=== PATIENT | female | born 1950 | race Two or more races ===

== ENCOUNTER 2017-01-27 17:12 | Inpatient (IN) | payer BC, MEDICAID ==
[~2017-01-27] VITALS: Ht 157.5 cm; Wt 61.7 kg
[~2017-01-27 17:12] MED LIST: AMLO1CAP6 PO; ASPI-1159 PO; AZAT50TA24 PO; CHOL20004 PO; DIATR MEGLU/DIATRIZOATE SOLN 30ML ONE; DOCU-138 PO; FAMO20TA8 PO; FOLI-43 PO; LOPERAMIDE PO; PRED5TAB48 PO; Q-PAP PO; URSODIOL PO
[2017-01-27] MEDS ORDERED: FAMOTIDINE 20MG/2ML VIAL IV STA (19:16)
[2017-01-27] MEDS ORDERED: ONDANSETRON HCL 4MG/2ML VIAL IV STA (19:16)
[2017-01-27 19:41] LABS: BASOPHILS % 0.7 % (0.0-2.0); EOSINOPHILS % 0.6 % (0.0-5.0); HEMOGLOBIN. 13.7 g/dL (12.0-16.0); LYMPHOCYTES % 21.3 % (20.0-50.0); MEAN CORPUSCULAR HEMOGLOBIN 27.9 pg (28.0-32.0); MEAN CORPUSCULAR VOLUME 85.8 fL (81.0-99.0); MEAN PLATELET VOLUME 8.7 fl (7.4-10.4); MONOCYTES % 8.1 % (2.0-8.0); NEUTROPHILS % 69.3 % (40.0-76.0); PLATELET 137 x1000/uL (130-400); RED CELL DISTRIBUTION WIDTH 14.6 % (11.6-14.6)
[2017-01-27 19:43] LABS: CHLORIDE 108 mEq/L (98-107)
[2017-01-27 19:44] LABS: PROTHROMBIN TIME 10.4 sec (9.4-11.6)
[2017-01-27 19:51] LABS: CARBON DIOXIDE 26 mEq/L (21-32)
[2017-01-27 20:01] LABS: GLUCOSE URINE NEGATIVE (NEGATIVE); KETONES URINE TRACE (NEGATIVE); LEUKOCYTE ESTERASE URINE NEGATIVE (NEGATIVE); NITRITE URINE NEGATIVE (NEGATIVE); OCCULT BLOOD URINE NEGATIVE (NEGATIVE); PH URINE 6.5 (4.5-8.0); PROTEIN URINE NEGATIVE (NEGATIVE); SPECIFIC GRAVITY URINE 1.014 (1.005-1.030)
[2017-01-27 20:15] LABS: CLARITY URINE CLEAR (CLEAR); COLOR URINE YELLOW (YELLOW)
[2017-01-28 10:45] VITALS: BP 121/66
[2017-01-28] MEDS ORDERED: IPRATROPIUM/ALBUTEROL 0.5-3(2.5)MG/3ML NEB INH PRN (10:45)
[2017-01-28] MEDS ORDERED: CLONIDINE 0.1MG TABLET PO PRN (10:45)
[2017-01-28] MEDS ORDERED: ACETAMINOPHEN 325MG TABLET PO PRN (10:45)
[2017-01-28] MEDS ORDERED: MAGNESIUM/ALUMINUM HYDROXIDE/SIMETHICONE 30ML UDC PO PRN (10:45)
[2017-01-28] MEDS ORDERED: ONDANSETRON HCL 4MG/2ML VIAL IV PRN (10:45)
[2017-01-28 10:48] VITALS: BP 121/66
[2017-01-28] MEDS: ASPIRIN 81MG EC TABLET PO SCH (11:15)
[2017-01-28] MEDS: ENOXAPARIN 40MG/0.4ML SYR SUBCUT SCH (11:20)
[2017-01-28] MEDS ORDERED: METO5AMP3 PO (11:21)
[2017-01-28] MEDS ORDERED: URSO300C4 PO (11:21)
[2017-01-28] MEDS ORDERED: PRED10TA23 PO (11:21)
[2017-01-28] MEDS ORDERED: LOPE2TAB26 PO (11:21)
[2017-01-28] MEDS ORDERED: CHOL500010 PO (11:21)
[2017-01-28] MEDS ORDERED: ALEN70TA46 PO (11:21)
[2017-01-28] MEDS ORDERED: LOPHC2 PO (11:22)
[2017-01-28] MEDS ORDERED: METO25TA6 PO (11:22)
[2017-01-28] MEDS: SODIUM CHLORIDE 0.9% 1,000 ML IV SCH (12:29)
[2017-01-28 16:00] VITALS: BP 141/78
[2017-01-28 16:38] LABS: CARBON DIOXIDE 27 mEq/L (21-32); CHLORIDE 106 mEq/L (98-107); CREATINE KINASE 80 IU/L (26-192); CREATINE KINASE MB FRACTION 3.1 ng/mL (0.5-3.6); TROPONIN I 0.05 ng/mL (0.00-0.04)
[2017-01-28 20:00] VITALS: BP 126/87
[2017-01-29] VITALS: BP 122/62
[2017-01-29] MEDS: SODIUM CHLORIDE 0.9% 1,000 ML IV SCH (05:17)
[2017-01-29 07:34] LABS: BASOPHILS % 0.6 % (0.0-2.0); EOSINOPHILS % 1.4 % (0.0-5.0); HEMATOCRIT. 41.6 % (36.0-48.0); HEMOGLOBIN. 13.6 g/dL (12.0-16.0); LYMPHOCYTES % 23.2 % (20.0-50.0); MEAN CORPUSCULAR HEMOGLOBIN 27.8 pg (28.0-32.0); MEAN CORPUSCULAR VOLUME 85.2 fL (81.0-99.0); MEAN PLATELET VOLUME 8.8 fl (7.4-10.4); MONOCYTES % 8.8 % (2.0-8.0); PLATELET 126 x1000/uL (130-400); RED BLOOD CELL COUNT 4.88 mill/uL (4.2-5.4); RED CELL DISTRIBUTION WIDTH 14.3 % (11.6-14.6)
[2017-01-29 08:00] VITALS: BP 116/64
[2017-01-29] MEDS: ASPIRIN 81MG EC TABLET PO SCH (08:20)
[2017-01-29 08:30] LABS: AMYLASE 49 IU/L (25-115)
[2017-01-29] MEDS: ENOXAPARIN 40MG/0.4ML SYR SUBCUT SCH (11:13)
[2017-01-29 12:00] VITALS: BP 143/71
[2017-01-29 16:00] VITALS: BP 122/65
[2017-01-29 19:55] VITALS: BP 114/73
[2017-01-30] VITALS: BP 138/60
[2017-01-30] MEDS: SODIUM CHLORIDE 0.9% 1,000 ML IV SCH (03:01)
[2017-01-30 04:00] VITALS: BP 118/71
[2017-01-30 06:35] LABS: BASOPHILS % 0.6 % (0.0-2.0); EOSINOPHILS % 2.2 % (0.0-5.0); HEMATOCRIT. 40.8 % (36.0-48.0); HEMOGLOBIN. 13.4 g/dL (12.0-16.0); LYMPHOCYTES % 25.4 % (20.0-50.0); MEAN CORPUSCULAR HEMOGLOBIN 28.2 pg (28.0-32.0); MEAN CORPUSCULAR VOLUME 85.6 fL (81.0-99.0); MEAN PLATELET VOLUME 8.8 fl (7.4-10.4); MONOCYTES % 9.5 % (2.0-8.0); NEUTROPHILS % 62.3 % (40.0-76.0); PLATELET 111 x1000/uL (130-400); RED BLOOD CELL COUNT 4.76 mill/uL (4.2-5.4); RED CELL DISTRIBUTION WIDTH 14.2 % (11.6-14.6)
[2017-01-30 07:39] LABS: CHLORIDE 109 mEq/L (98-107)
[2017-01-30 07:52] LABS: AMYLASE 45 IU/L (25-115); CARBON DIOXIDE 25 mEq/L (21-32); CREATINE KINASE 78 IU/L (26-192); CREATINE KINASE MB FRACTION 2.3 ng/mL (0.5-3.6); TROPONIN I 0.06 ng/mL (0.00-0.04)
[2017-01-30 08:00] VITALS: BP 120/71
[2017-01-30] MEDS: ASPIRIN 81MG EC TABLET PO SCH (08:47)
[2017-01-30] MEDS: ENOXAPARIN 40MG/0.4ML SYR SUBCUT SCH (10:12)
[2017-01-30 12:00] VITALS: BP 138/60
[2017-01-30] MEDS ORDERED: CARVEDILOL 3.125 MG TABLET PO SCH (13:00)
[2017-01-30] MEDS ORDERED: BENAZEPRIL 10MG TABLET PO SCH (13:00)
[2017-01-30 16:00] VITALS: BP 125/75
[2017-01-30 18:08] VITALS: BP 125/75
== END 2017-01-30 19:10 | disposition home or self-care (01) ==
LOC: ER 18:02 → EDBEDREQ 01-28 05:05 → 8WST 01-28 05:12 → EDBEDREQ 01-28 05:21 → ENRESERV 01-28 09:57
PROVIDERS: ADMIT Internal Medicine; ATTEND Internal Medicine
DX: K80.80 Other cholelithiasis without obstruction (principal); I49.5 Sick sinus syndrome; K85.10 Biliary acute pancreatitis without necrosis or infection; I11.9 Hypertensive heart disease without heart failure; I69.354 Hemiplegia and hemiparesis following cerebral infarction affecting left non-dominant side; K74.3 Primary biliary cirrhosis; I48.91 Unspecified atrial fibrillation; I25.5 Ischemic cardiomyopathy; K44.9 Diaphragmatic hernia without obstruction or gangrene; K21.9 Gastro-esophageal reflux disease without esophagitis; K57.90 Diverticulosis of intestine, part unspecified, without perforation or abscess without bleeding; K25.9 Gastric ulcer, unspecified as acute or chronic, without hemorrhage or perforation; I45.2 Bifascicular block; K80.20 Calculus of gallbladder without cholecystitis without obstruction; M06.9 Rheumatoid arthritis, unspecified; Z95.0 Presence of cardiac pacemaker; Z90.49 Acquired absence of other specified parts of digestive tract; Z87.11 Personal history of peptic ulcer disease; Z79.52 Long term (current) use of systemic steroids; Z79.82 Long term (current) use of aspirin; Z79.899 Other long term (current) drug therapy
CPT/HCPCS: 36415; 71010; 74176; 76705; 78227; 80048; 80053; 80061; 80076; 81003; 82105; 82150; 82550; 82553; 83690; 83735; 83880; 84443; 84484; 85025; 85610; 86850; 86900; 87015; 87040; 87045; 87427; 87449; 87493; 89055; 93005; 93306; 93970; 96374; 96375; 99285; A9537; J1650; J2405; J3490; J7030; Q9963